=== PATIENT | male | born 1940 | race Asian ===

== ENCOUNTER 2025-02-24 12:48 | Outpatient (CLI) | payer MEDICAID, SELFPAY | END 2025-02-24 12:49 | disposition home or self-care (01) | LOC: WOUND 12:51 | PROVIDERS: PCP Family Medicine; Visit Provider Surgery | DX: T81.31XA Disruption of external operation (surgical) wound, not elsewhere classified, initial encounter (principal); E11.22 Type 2 diabetes mellitus with diabetic chronic kidney disease; N18.6 End stage renal disease; Z79.4 Long term (current) use of insulin; Z79.84 Long term (current) use of oral hypoglycemic drugs; Z87.891 Personal history of nicotine dependence | CPT/HCPCS: G0463 ==

== ENCOUNTER 2025-03-03 13:35 | Outpatient (CLI) | payer MEDICAID, SELFPAY | END 2025-03-03 13:36 | disposition home or self-care (01) | LOC: WOUND 13:35 | PROVIDERS: PCP Family Medicine; Visit Provider Surgery | DX: S21.201A Unspecified open wound of right back wall of thorax without penetration into thoracic cavity, initial encounter (principal); E11.22 Type 2 diabetes mellitus with diabetic chronic kidney disease; I25.84 Coronary atherosclerosis due to calcified coronary lesion; N18.30 Chronic kidney disease, stage 3 unspecified; N18.6 End stage renal disease; Z79.4 Long term (current) use of insulin; Z79.84 Long term (current) use of oral hypoglycemic drugs | CPT/HCPCS: G0463 ==

== ENCOUNTER 2025-03-05 15:46 | Outpatient (CLI) | payer MEDICAID, SELFPAY | END 2025-03-05 15:47 | disposition home or self-care (01) | LOC: WOUND 15:46 | PROVIDERS: PCP Family Medicine; Visit Provider Surgery | DX: S21.201A Unspecified open wound of right back wall of thorax without penetration into thoracic cavity, initial encounter (principal); R54 Age-related physical debility | CPT/HCPCS: G0463 ==

== ENCOUNTER 2025-03-08 09:58 | Outpatient (CLI) | payer MEDICAID, SELFPAY | END 2025-03-08 09:59 | disposition home or self-care (01) | LOC: WOUND 09:58 | PROVIDERS: PCP Family Medicine; Visit Provider Family Medicine | DX: T81.31XA Disruption of external operation (surgical) wound, not elsewhere classified, initial encounter (principal); E11.22 Type 2 diabetes mellitus with diabetic chronic kidney disease; N18.6 End stage renal disease; Z79.4 Long term (current) use of insulin; Z79.84 Long term (current) use of oral hypoglycemic drugs | CPT/HCPCS: 11042 ==

== ENCOUNTER 2025-03-10 10:01 | Outpatient (CLI) | payer MEDICAID, SELFPAY | END 2025-03-10 10:02 | disposition home or self-care (01) | LOC: WOUND 10:01 | PROVIDERS: PCP Family Medicine; Visit Provider Nurse Practitioner Family | DX: Z48.00 Encounter for change or removal of nonsurgical wound dressing (principal) | CPT/HCPCS: G0463 ==

== ENCOUNTER 2025-03-12 09:58 | Outpatient (CLI) | payer MEDICAID, SELFPAY | END 2025-03-12 09:59 | disposition home or self-care (01) | LOC: WOUND 09:58 | PROVIDERS: PCP Family Medicine; Visit Provider Nurse Practitioner Family | DX: T81.31XA Disruption of external operation (surgical) wound, not elsewhere classified, initial encounter (principal) | CPT/HCPCS: G0463 ==

== ENCOUNTER 2025-03-24 14:33 | Outpatient (CLI) | payer MEDICAID, SELFPAY | END 2025-03-24 14:34 | disposition home or self-care (01) | LOC: WOUND 14:33 | PROVIDERS: PCP Family Medicine; Visit Provider Surgery | DX: T81.31XA Disruption of external operation (surgical) wound, not elsewhere classified, initial encounter (principal); E11.22 Type 2 diabetes mellitus with diabetic chronic kidney disease; N18.9 Chronic kidney disease, unspecified; I25.84 Coronary atherosclerosis due to calcified coronary lesion; R54 Age-related physical debility; Z79.4 Long term (current) use of insulin | CPT/HCPCS: G0463 ==

== ENCOUNTER 2025-03-31 13:26 | Outpatient (CLI) | payer MEDICAID, SELFPAY | END 2025-03-31 13:27 | disposition home or self-care (01) | LOC: WOUND 13:26 | PROVIDERS: PCP Family Medicine; Visit Provider Surgery | DX: T81.31XD Disruption of external operation (surgical) wound, not elsewhere classified, subsequent encounter (principal); E11.22 Type 2 diabetes mellitus with diabetic chronic kidney disease; N18.9 Chronic kidney disease, unspecified; I25.84 Coronary atherosclerosis due to calcified coronary lesion; R54 Age-related physical debility; Z79.4 Long term (current) use of insulin | CPT/HCPCS: G0463 ==